=== PATIENT | female | born 1990 | race Caucasian/White ===

== ENCOUNTER 2017-04-20 10:07 | Outpatient (CLI) | payer OTHER ==
[~2017-04-20] VITALS: Ht 157.5 cm; Wt 77.1 kg
[~2017-04-20 10:07] MED LIST: BUSP10TA PO; DEPA1TAB3 PO; DEPA250T32 PO; LANS15CA PO; MONT10TA2 PO; SERO50TA PO; WELLTAB40 PO; ZYRT10TA2 PO
[2017-04-20] MEDS ORDERED: NS 1,000 ML IV ONE (10:15)
[2017-04-20] MEDS ORDERED: PROPOFOL 200 MG/20 ML VIAL As Ordered ONE ×2 (10:43→10:58)
[2017-04-20] MEDS ORDERED: fentaNYL 100 MCG/2 ML INJECTION (J3010) As Ordered ONE (10:43)
[2017-04-20] MEDS ORDERED: LIDOCAINE 2% INJ 100 MG/5 ML SDV (FOR ANES.) As Ordered ONE (10:43)
--- NOTE | 2017-04-20 11:13 | ROOR ---
Patient Name: Sanna Skelton Procedure Date: 04/20/2017 10:43 AM Date of : 1990 Age: 26 Room: [facility] Gender: Female Note Status: Finalized Procedure: Upper GI endoscopy Indications: Suspected gastro-esophageal reflux disease Providers: Alexys Gilbert MD Referring MD: Lorne SUN MD Requesting Provider: Medicines: Monitored Anesthesia Care Complications: No immediate complications. Procedure: Pre-Anesthesia Assessment: - Prior to the procedure, a History and Physical was performed, and patient medications and allergies were reviewed. The patient is competent. The risks and benefits of the procedure and the sedation options and risks were discussed with the patient. All questions were answered and informed consent was obtained. Patient identification and proposed procedure were verified by the physician, the nurse and the tow boat captain in the procedure room. Mental Status Examination: alert and oriented. Airway Examination: normal oropharyngeal airway and neck mobility. Respiratory Examination: clear to auscultation. CV Examination: normal. Prophylactic Antibiotics: The patient does not require prophylactic antibiotics. Prior Anticoagulants: The patient has taken no previous anticoagulant or antiplatelet agents. ASA Grade Assessment: II - A patient with mild systemic disease. After reviewing the risks and benefits, the patient was deemed in satisfactory condition to undergo the procedure. The anesthesia plan was to use monitored anesthesia care (MAC). Immediately prior to administration of medications, the patient was re-assessed for adequacy to receive sedatives. The heart rate, respiratory rate, oxygen saturations, blood pressure, adequacy of pulmonary ventilation, and response to care were monitored throughout the procedure. The physical status of the patient was re-assessed after the procedure. The Endoscope was introduced through the mouth, and advanced to the second part of duodenum. The upper GI endoscopy was accomplished without difficulty. The patient tolerated the procedure well. Findings: The Z-line was irregular and was found 36 cm from the incisors. Biopsies were taken with a cold forceps for histology. Verification of patient identification for the specimen was done by the physician and nurse using the patient's name, date and medical record number. Estimated blood loss was minimal. Striped moderately erythematous mucosa without bleeding was found in the gastric antrum. Biopsies were taken with a cold forceps for Helicobacter pylori testing. The duodenal bulb and second portion of the duodenum were normal. Biopsies for histology were taken with a cold forceps for evaluation of celiac disease. Impression: - Z-line irregular, 36 cm from the incisors. Biopsied. - Erythematous mucosa in the antrum. Biopsied. - Normal duodenal bulb and second portion of the duodenum. Biopsied. Recommendation: - Patient has a contact number available for emergencies. The signs and symptoms of potential delayed complications were discussed with the patient. Return to normal activities tomorrow. Written discharge instructions were provided to the patient. - Resume previous diet. - Continue present medications. - Await pathology results. - Return to GI clinic at appointment to be scheduled based on the pathology results.. - Return to primary care physician. Alexys Gilbert MD Alexys Gilbert MD 04/20/2017 11:12:35 AM This report has been signed electronically. Number of Addenda: 0 Note Initiated On: 04/20/2017 10:43 AM Estimated Blood Loss: Estimated blood loss was minimal.
[2017-04-20 11:25] VITALS: BP 124/64
== END 2017-04-20 11:33 | disposition home or self-care (01) ==
LOC: M OPP 10:07
PROVIDERS: ATTEND Internal Medicine Gastroenterology
DX: K22.8 Other specified diseases of esophagus (principal); K31.89 Other diseases of stomach and duodenum; K21.9 Gastro-esophageal reflux disease without esophagitis; M26.69 Other specified disorders of temporomandibular joint; F41.9 Anxiety disorder, unspecified; F31.9 Bipolar disorder, unspecified; R51 Headache; Z79.899 Other long term (current) drug therapy; Z83.6 Family history of other diseases of the respiratory system; Z86.79 Personal history of other diseases of the circulatory system; Z83.3 Family history of diabetes mellitus; Z83.79 Family history of other diseases of the digestive system
CPT/HCPCS: 43239; 88305; J3010

== ENCOUNTER 2025-03-24 17:32 | Inpatient (IN) | payer OTHER ==
[~2025-03-24] VITALS: Ht 157.5 cm; Wt 105.1 kg
[~2025-03-24 17:32] MED LIST changes: -DEPA250T32 PO; +DIVA-65 PO; -MONT10TA2 PO; +MONT10TA97 PO; +ZYRT10CA5 PO; -ZYRT10TA2 PO
[2025-03-24 18:17] LABS: PLATELET COUNT, AUTOMATED 342 10^3/uL (150-450)
[2025-03-24 18:40] LABS: ETHYL ALCOHOL (ETHANOL) 0.004 % (0.000-0.010)
[2025-03-24 18:42] LABS: ALT/SGPT 19 U/L (7.0-40); AST/SGOT 13 U/L (<34); CALCIUM LEVEL 9.0 MG/DL (8.5-10.1); CARBON DIOXIDE LEVEL 23 MMOL/L (20-31); CHLORIDE LEVEL 108 MMOL/L (98-107); CREATININE FOR GFR 0.99 MG/DL (0.55-1.30); GLOMERULAR FILTRATION RATE 77.7 (>60); POTASSIUM SERUM 4.2 MMOL/L (3.5-5.1); SALICYLATE LEVEL < 3.0 MG/DL (<30); SODIUM LEVEL 142 MMOL/L (136-145)
[2025-03-24 18:50] LABS: AMPHETAMINES LEVEL URINE NEGATIVE (NEGATIVE); BARBITURATES URINE NEGATIVE (NEGATIVE); BENZODIAZEPINES URINE NEGATIVE (NEGATIVE); CANNABINOIDS URINE NEGATIVE (NEGATIVE); COCAINE METABOLITE URINE NEGATIVE (NEGATIVE); METHADONE URINE NEGATIVE (NEGATIVE); OPIATES URINE NEGATIVE (NEGATIVE); PHENCYCLIDINE URINE NEGATIVE (NEGATIVE)
[2025-03-24] MEDS ORDERED: traZODone 50 MG TAB PO PRN (19:45)
[2025-03-24] MEDS ORDERED: MAALOX 30 ML SUSP *UDC PO PRN (19:45)
[2025-03-24] MEDS ORDERED: MOM 30 ML SUSPENSION UDC PO PRN (19:45)
[2025-03-24] MEDS: ACETAMINOPHEN 325 MG TAB PO PRN (20:25)
[2025-03-24 21:16] LABS: HCG, SERUM QUALITATIVE NEGATIVE (NEGATIVE)
[2025-03-24 22:02] VITALS: BP 130/78; TEMP 98.1; O2SAT 100
[2025-03-24] MEDS ORDERED: DIVA250T67 PO ×2 (22:19→22:39)
[2025-03-24] MEDS ORDERED: SPRI28TA PO (22:19)
[2025-03-24] MEDS ORDERED: CETI-24 PO (22:19)
[2025-03-24] MEDS ORDERED: ZONI50CA11 PO (22:19)
[2025-03-24] MEDS ORDERED: GABA-1172 PO (22:19)
[2025-03-24] MEDS ORDERED: LUMA42CA PO (22:19)
[2025-03-24] MEDS ORDERED: PROA1AER2 INH (22:19)
[2025-03-24] MEDS ORDERED: HOME MED LIST COMPLETE! XX SCH (22:20)
[2025-03-25] MEDS: DIVALPROEX 500 MG TAB PO SCH (10:44)
[2025-03-25 15:35] VITALS: BP 131/82; TEMP 97.8; O2SAT 100
[2025-03-25] MEDS: OMEPRAZOLE 20MG CAP PO SCH (17:10)
[2025-03-25] MEDS ORDERED: ALBUTEROL 90 MCG/ACT 8 GM HFA INHALER INH PRN ×2 (18:05→21:15)
[2025-03-25] MEDS: GABAPENTIN 300 MG CAP PO SCH (21:45)
[2025-03-25] MEDS: ZONISAMIDE 50MG CAP PO SCH (21:45)
[2025-03-25] MEDS: MONTELUKAST 10 MG TAB PO SCH (21:45)
[2025-03-26 06:30] VITALS: BP 136/65; TEMP 98.6; O2SAT 100
[2025-03-26] MEDS: IBUPROFEN 400 MG TAB PO PRN (06:38)
[2025-03-26] MEDS: CETIRIZINE 10 MG TAB PO SCH (08:12)
[2025-03-26] MEDS: DIVALPROEX 250 MG TAB PO SCH (08:12)
[2025-03-26] MEDS: buPROPion **XL** 150 MG TABLET PO SCH (08:13)
[2025-03-26 14:50] VITALS: BP 145/72; TEMP 97.6; O2SAT 100
[2025-03-26] MEDS: DIVALPROEX 500 MG TAB PO SCH (20:07)
[2025-03-26] MEDS ORDERED: LUMATEPERONE 42 MG PO SCH (21:00)
[2025-03-26] MEDS ORDERED: DIVALPROEX 500 MG TAB PO SCH (21:00)
[2025-03-27 06:37] VITALS: BP 117/58; TEMP 97.9; O2SAT 98
[2025-03-27] MEDS: FLUoxetine 20 MG CAP PO SCH (08:28)
[2025-03-27 15:15] VITALS: BP 144/70; TEMP 98.2; O2SAT 99
[2025-03-28] MEDS ORDERED: TRAZ-252 PO (03:19)
[2025-03-28] MEDS ORDERED: DIVA-41 PO (03:19)
[2025-03-28] MEDS ORDERED: FLUO-365 PO (03:19)
[2025-03-28 06:24] VITALS: BP 140/67; TEMP 98.6; O2SAT 99
== END 2025-03-28 09:50 | disposition home or self-care (01) | DRG 753 ==
LOC: M ED 17:32 → M ED INP 19:44 → M PSY 21:21
PROVIDERS: ADMIT Psychiatry & Neurology Neurology; ATTEND Internal Medicine
DX: F31.5 Bipolar disorder, current episode depressed, severe, with psychotic features (principal); F41.9 Anxiety disorder, unspecified; H54.8 Legal blindness, as defined in USA; F60.89 Other specific personality disorders; Z79.899 Other long term (current) drug therapy; Z88.4 Allergy status to anesthetic agent; Z81.8 Family history of other mental and behavioral disorders